=== PATIENT | female | born 1990 | race Caucasian/White ===

== ENCOUNTER 2017-02-23 03:48 | Observation (INO) | payer SELFPAY ==
[~2017-02-23] VITALS: Ht 162.6 cm; Wt 117.8 kg
[~2017-02-23 03:48] MED LIST: NO HOME MEDICATIONS
[2017-02-23 05:44] VITALS: BP 124/73; PULSE 101; TEMP 98.7
[2017-02-23 08:27] VITALS: BP 120/61; PULSE 85; TEMP 98.6
[2017-02-23] MEDS ORDERED: NORCO 325 MG-51 TAB PO (12:39)
[2017-02-23] MEDS ORDERED: MOTRIN 600600 MG/TAB PO (12:39)
[2017-02-23] MEDS ORDERED: COLACE 100100 MG/CAP PO (12:39)
[2017-02-23] MEDS ORDERED: ZOFRAN ODT4 MG PO (12:40)
[2017-02-23 13:41] VITALS: BP 119/74; PULSE 77; TEMP 98.5
[2017-02-23 18:09] VITALS: BP 125/67; PULSE 80; TEMP 98.3
[2017-02-23 21:30] VITALS: BP 136/82; PULSE 16; TEMP 97.9
== END 2017-02-23 22:30 | disposition home or self-care (01) ==
LOC: SURG 03:48
DX: K35.80 Unspecified acute appendicitis (principal); N83.202 Unspecified ovarian cyst, left side; Z68.41 Body mass index [BMI] 40.0-44.9, adult; R12 Heartburn; R51 Headache; F17.210 Nicotine dependence, cigarettes, uncomplicated; G47.29 Other circadian rhythm sleep disorder
CPT/HCPCS: G0378; G0379; J1100; J1170; J1885; J2405; J2543; J2550; J2704; J2765; J7030; J7050; J7120